=== PATIENT | male | born 2000 | race Caucasian/White ===

== ENCOUNTER 2021-11-24 08:49 | Emergency (ER) | payer OTHER ==
[2021-11-24] MEDS: Sodium Chloride 0.9% 10 ML Syringe FLUSH PRN (09:09)
[2021-11-24] MEDS: Sodium Chloride 0.9% 1,000 ML IV ONE (09:10)
[2021-11-24] MEDS: Ondansetron 4 MG/2 ML SDV IV ONE (09:11)
[2021-11-24] MEDS: HYDROmorphone 1 MG/ML Syringe IVPUSH ONE (09:11)
[2021-11-24] MEDS: Iopamidol 612 MG/ML 100 ML Bottle IVPUSH ONE (09:32)
[2021-11-24 10:06] LABS: ANION GAP 14.6 mEq/L (7-13); CHLORIDE,CL 104 mmol/L (98-107); ESTIMATED GFR > 60; SODIUM,NA 138 mmol/L (136-145)
== END 2021-11-24 10:00 | disposition home or self-care (01) ==
LOC: DL.ED 08:49
DX: K52.9 Noninfective gastroenteritis and colitis, unspecified (principal)
CPT/HCPCS: 36415; 74177; 80053; 82150; 83605; 83690; 85025; 86140; 96374; 96375; 99283; 99284-25; J1170; J2405; J3490; J7030; Q9967